=== PATIENT | female | born 1985 | race Hispanic/Latino ===

== ENCOUNTER 2020-01-15 07:13 | Emergency (ER) | payer OTHER ==
[2020-01-15] MEDS ORDERED: Ondansetron PF 4 MG/2 ML Vial ONE (08:06)
[2020-01-15] MEDS ORDERED: Morphine 4 MG/ML VIAL ONE (08:06)
[2020-01-15 08:27] LABS: BHCG - Serum POSITIVE (NEGATIVE); Pregs Control Background? CLEAR/WHITE (CLR/WHITE); Pregs Control Bar Appear? YES (CONTROL BAR)
[2020-01-15 08:29] LABS: #Lymphocytes 1.8 thou/uL (1.20-3.40); #Monocytes 0.5 thou/uL (0.11-0.59); #Neutrophils 5.9 thou/uL (1.40-6.50); %Basophils 0.2 % (0.0-1.0); %Eosinophils 0.4 % (0.0-10.0); %Lymphocytes 21.9 % (21.0-51.0); %Neutrophils 71.5 % (42.0-75.0); Mean Corpuscular HGB CONC 36.2 g/dL (32.0-36.0); Mean Corpuscular Hemoglobin 31.6 pg (27.0-31.0); Mean Corpuscular Volume 87.3 fL (78.0-98.0); Mean Platelet Volume 8.5 fL (7.4-10.4); Platelet Count 255 thou/uL (130-400); RBC Distribution Width 11.8 % (11.5-14.5); Red Blood Cell (RBC) Count 4.43 mill/uL (4.20-5.40); White Blood Cell (WBC) Count 8.2 thou/uL (4.8-10.8)
[2020-01-15 08:41] LABS: ALT (SGPT) 48 U/L (8-55); AST (SGOT) 27 U/L (5-34); Albumin 4.4 g/dL (3.5-5.0); Alkaline Phosphatase 90 U/L (40-110); Anion Gap 17 mmol/L (10-20); BUN (Urea Nitrogen) 6 mg/dL (7.0-18.7); Bilirubin, Total 0.9 mg/dL (0.2-1.2); Calc. Creatinine Clearance 0 mL/min (70-130); Calcium 9.2 mg/dL (7.8-10.44); Carbon Dioxide 20 mmol/L (22-29); Chloride 101 mmol/L (98-107); Globulin 3.5 g/dL (2.4-3.5); Glucose 98 mg/dL (70-105); Lipase 12 U/L (8-78); Potassium 3.5 mmol/L (3.5-5.1); Protein, Total 7.9 g/dL (6.0-8.3); Sodium 134 mmol/L (136-145)
--- NOTE | 2020-01-15 09:00 | ULT ---
Exam: Right upper quadrant ultrasound: HISTORY: Right upper quadrant pain COMPARISON: None FINDINGS: Visualized liver:Minimal coarse liver echogenicity. Gallbladder:Multiple shadowing gallstones as well as some nonshadowing nodular densities probably rep resenting sludge balls. No abnormal wall thickening or pericholecystic fluid. One of the gallstones is noted in the neck of the gallbladder and does not appear to move. Common bile duct:Within normal limits. The visualized pancreas and right kidney are unremarkable. No evidence for abscess or abnormal fluid collection in the right upper quadrant. IMPRESSION: Multiple gallstones including a stone in the neck of the gallbladder which does not appear to move. N o overt gallbladder wall thickening or pericholecystic fluid. In addition to the stones there are some nonshadowing nodular changes probably nodular sludge or sludge balls.
[2020-01-15 09:57] LABS: Bilirubin Negative (Negative); Clarity Clear (Clear); Glucose, Urine (Dipstick) Normal (Negative); Ketone, Urine Greater than 150 mg/dL (Negative); Leukocyte 250 Leu/uL (Negative); Nitrite Negative (Negative); Protein, Urine (Dipstick) Negative (Neg-Trace); Specific Gravity, Urine 1.014 (1.002-1.036); Urobilinogen Normal mg/dL (Less than 2)
[2020-01-15 10:02] LABS: Blood, Urine Negative (Negative)
[2020-01-15 10:08] LABS: Squamous Epithelial 0-3 HPF (0-3); WBC/HPF 0-3 HPF (0-3)
[2020-01-15 10:09] LABS: Bacteria/HPF None Seen HPF (None Seen)
[2020-01-15] MEDS ORDERED: HYDROcodone/Acetaminophen 5/325 mg Tablet ONE (12:17)
--- NOTE | 2020-01-15 13:20 | ULT ---
PELVIC ULTRASOUND: Transabdominal ultrasound of the pelvis performed. INDICATION: Abdominal pain. FINDINGS: There is a viable intrauterine . A pole is identified and a crown-rump length indicat es an 8-week 3-day gestational age. Yolk sac is identified. heart rate recorded at 186 b.p.m. Gestational sac appears normal. No evidence of subchorionic hemorrhage. Maternal ovaries are identified and appear unremarkable. Color Doppler no active disease spectral an alysis demonstrate blood flow to both maternal ovaries. Adnexa regions otherwise unremarkable. IMPRESSION: Viable intrauterine with crown-rump length indicating an 8-week 3-day gestational age. POS: AGW
== END 2020-01-15 12:22 | disposition home or self-care (01) ==
LOC: ERS 07:13
DX: O99.611 Diseases of the digestive system complicating pregnancy, first trimester (principal); K80.20 Calculus of gallbladder without cholecystitis without obstruction; Z3A.01 Less than 8 weeks gestation of pregnancy
CPT/HCPCS: 76705; 76856; 80053; 81003; 81015; 83690; 84702; 84703; 85025; 93976; 96374; 96375; J2270; J2405